=== PATIENT | male | born 1970 | race Caucasian/White ===

== ENCOUNTER 2016-06-10 21:14 | Emergency (ER) | payer SELFPAY ==
[~2016-06-10] VITALS: Ht 180.3 cm; Wt 99.8 kg
[2016-06-10 21:41] VITALS: BP 101/60
[2016-06-10 21:55] VITALS: BP 147/90
--- NOTE | 2016-06-10 23:05 | NUR ---
PATIENT LEFT WITHOUT BEING SEEN.
== END 2016-06-10 23:05 | disposition left against medical advice (07) ==
LOC: MED 21:14
DX: L03.90 Cellulitis, unspecified (principal); Z53.21 Procedure and treatment not carried out due to patient leaving prior to being seen by health care provider

== ENCOUNTER 2016-06-11 03:05 | Emergency (ER) | payer SELFPAY ==
[~2016-06-11] VITALS: Ht 180.3 cm; Wt 99.8 kg
[2016-06-11 03:15] VITALS: BP 131/91
--- NOTE | 2016-06-11 03:59 | NUR ---
Patient to bed 05.
--- NOTE | 2016-06-11 04:09 | NUR ---
Dr. Phoenix evaluating patient at bedside.
[2016-06-11] MEDS ORDERED: LIDOCAINE 1% 500 MG/50 ML VIAL INJ ONE (04:15)
[2016-06-11] MEDS ORDERED: LIDOCAINE 1% ED 50 ML ONE (04:20)
--- NOTE | 2016-06-11 05:00 | NUR ---
Patient discharged with v/s stable. Written and verbal after care instructions given and explained. Patient alert, oriented and verbalized understanding of instructions. Ambulatory with steady gait. All questions addressed prior to discharge. ID band removed. Patient advised to follow up with PMD. Rx of MOTRIN, BACTRIM,TYLENOL #3 given. Patient educated on indication of medication including possible reaction and side effects. Opportunity to ask questions provided and answered.
[2016-06-11 05:02] VITALS: BP 131/91
== END 2016-06-11 05:00 | disposition home or self-care (01) ==
LOC: MED 03:05
DX: L02.415 Cutaneous abscess of right lower limb (principal); R11.0 Nausea; I10 Essential (primary) hypertension
CPT/HCPCS: 10060; 99283; J2001

== ENCOUNTER 2016-06-13 14:45 | Emergency (ER) | payer MEDICAID ==
[~2016-06-13] VITALS: Ht 180.3 cm; Wt 93.4 kg
[2016-06-13 14:53] VITALS: BP 121/89
--- NOTE | 2016-06-13 16:51 | NUR ---
Pt taken to bed 7. Ambulatory with steady gait.
--- NOTE | 2016-06-13 17:02 | NUR ---
Suture removal set at bedside.
--- NOTE | 2016-06-13 17:06 | NUR ---
45/M presents to ED for re-evaluation of left upper thigh abscess. Pt had an I&D done two days ago and had packing placed. Patient states he is taking antibiotics and pain medication as prescribed. Pt had bandage in place in place. Pt has redness, swelling and tenderness with palpation. Pt is here for re-check.
--- NOTE | 2016-06-13 17:07 | NUR ---
Packing removed by Dr. Phoenix. Pt tolerated procedure well.
--- NOTE | 2016-06-13 17:07 | NUR ---
Patient being evaluated by physician at bedside.
--- NOTE | 2016-06-13 17:24 | NUR ---
Patient discharged with v/s stable. Written and verbal after care instructions given and explained. Patient verbalized understanding. Ambulatory with steady gait. All questions addressed prior to discharge. Advised to follow up with PMD.
[2016-06-13 17:25] VITALS: BP 144/100
== END 2016-06-13 17:24 | disposition home or self-care (01) ==
LOC: MED 14:45
DX: M79.604 Pain in right leg (principal); I10 Essential (primary) hypertension

== ENCOUNTER 2016-08-22 06:01 | Emergency (ER) | payer MEDICAID, OTHER ==
[~2016-08-22] VITALS: Ht 180.3 cm; Wt 93.0 kg
[2016-08-22 06:01] VITALS: BP 156/109
--- NOTE | 2016-08-22 06:02 | NUR ---
Patient ambulated to bed 03.
--- NOTE | 2016-08-22 06:04 | NUR ---
PATIENT PRESENTS TO ED WITH C/O CHEST PAIN . PT STATES X 12PM LASTNIGHT STARTED AT REST. SMOKED POT LASTNIGHT. PT DENIES N/V/D; SKIN IS PINK/WARM/DRY; AAOX4 WITH EVEN AND STEADY GAIT; LUNGS CLEAR BL; HR EVEN AND REGULAR; PT DENIES ANY FEVER, SOB, OR COUGH AT THIS TIME; PATIENT STATES PAIN OF 8/10 AT THIS TIME; VSS; PATIENT POSITIONED FOR COMFORT; HOB ELEVATED; BEDRAILS UP X2; BED DOWN. ER MD MADE AWARE OF PT STATUS.
--- NOTE | 2016-08-22 06:14 | NUR ---
Dr. Phoenix evaluating patient at bedside.
[2016-08-22] MEDS ORDERED: NACL 0.9% 1,000 ML IV ONE (06:20)
[2016-08-22] MEDS ORDERED: KETOROLAC 30 MG/ML VIAL IVP ONE (06:20)
[2016-08-22] MEDS ORDERED: LORazepam 2 MG/ML VIAL IVP ONE (06:20)
[2016-08-22] MEDS ORDERED: METOPROLOL 5 MG/5 ML VIAL IVP ONE (06:20)
[2016-08-22] MEDS ORDERED: ASPIRIN 81 MG TAB.CHEW PO ONE (06:35)
[2016-08-22] MEDS ORDERED: PANTOPRAZOLE 40 MG INJ VIAL IVP ONE (06:40)
--- NOTE | 2016-08-22 07:09 | NUR ---
Pt report given to ANNETTE. Transfer of care at this time.
--- NOTE | 2016-08-22 07:20 | NUR ---
IV removed, catheter intact and site benign. Applied folded 4x4 gauze and tape to stop bleeding.
--- NOTE | 2016-08-22 07:22 | NUR ---
Patient discharged with v/s stable. Written and verbal after care instructions given and explained. Patient alert, oriented and verbalized understanding of instructions. Ambulatory with steady gait. All questions addressed prior to discharge. ID band removed. Patient advised to follow up with PMD. Rx of OMEPRAZOLE 40MG given. Patient educated on indication of medication including possible reaction and side effects. Opportunity to ask questions provided and answered.
[2016-08-22 07:23] VITALS: BP 148/91
== END 2016-08-22 07:22 | disposition home or self-care (01) ==
LOC: MED 06:01
DX: K29.00 Acute gastritis without bleeding (principal); I10 Essential (primary) hypertension
CPT/HCPCS: 36415; 71010; 80053; 84484; 85025; 85610; 85730; 93005; 96361; 96374; 96375; 99285; C9113; J1885; J2060; J3490; Q0092